=== PATIENT | female | born 1980 | race Caucasian/White ===

== ENCOUNTER 2016-08-31 17:50 | Emergency (ER) | payer OTHER ==
[~2016-08-31] VITALS: Ht 160 cm; Wt 75.8 kg
[~2016-08-31 17:50] MED LIST: AUGMENTIN 875-1 EACH PO; MOTRIN 400MG.400 MG PO; PERCOCET 5/3251 EACH PO; PRENATAL PLUS1 TA1 PO; PRENATAL VITAMI1 TAB PO; [UNRECOGNIZED DRUG - OTHER] PO
[2016-08-31] MEDS ORDERED: NOMEDS XX (18:39)
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
[2016-08-31] MEDS ORDERED: DICLOFENAC 50MG50 MG PO (20:10)
[2016-08-31] MEDS ORDERED: ROBAXIN500 M1 PO (20:10)
[2016-08-31 20:16] VITALS: BP 126/79
== END 2016-08-31 20:18 | disposition still patient (30) ==
LOC: ER 17:50
DX: S16.1XXA Strain of muscle, fascia and tendon at neck level, initial encounter (principal); S39.012A Strain of muscle, fascia and tendon of lower back, initial encounter; V43.62XA Car passenger injured in collision with other type car in traffic accident, initial encounter; Y92.414 Local residential or business street as the place of occurrence of the external cause